=== PATIENT | female | born 1940 | race Caucasian/White ===

== ENCOUNTER 2023-04-24 15:07 | Outpatient (CLI) | payer MEDICARE, BC, SELFPAY ==
--- NOTE | 2023-04-24 15:30 | CRLHL7_ITS ---
For Patients: As a result of the Century Cures Act, medical imaging exams and procedure reports are released immediately into your electronic medical record. You may view this report before your referring provider. If you have questions, please contact your health care provider. Indication: Low back pain. Technique: Multiplanar, multisequence, MRI of the lumbar spine, obtained without contrast. Comparison: MR lumbar spine dated 04/29/2017. Findings: Transitional lumbosacral anatomy. For the purposes of this exam, the last well-formed intervertebral disc is denoted L5-S1. Similar dextroscoliosis centered at L2-L3. Vertebral body heights are maintained and there is no evidence of acute fracture. No suspicious T1 hypointense lesion is identified. The conus medullaris terminates at approximately L1-L2. There is pronounced intervertebral disc height loss on the right at L1-L2, L2-L3 and L4-L5. T12-L1: Similar mild-moderate left neural foraminal narrowing from pronounced facet joint hypertrophy. No significant spinal canal or right neural foraminal stenosis. L1-L2: Similar moderate left neural foraminal narrowing from pronounced facet joint hypertrophy. Abutment of the transiting left L2 nerve root. No significant spinal canal or right neural foraminal stenosis. L2-L3: No significant spinal canal stenosis. Similar mild bilateral neural foraminal narrowing. L3-L4: No significant spinal canal or left neural foraminal stenosis. Similar moderate right neural foraminal narrowing from pronounced facet arthrosis and disc bulge. L4-L5: No significant spinal canal or left neural foraminal stenosis. Similar moderate right neural foraminal narrowing from pronounced facet arthrosis and disc bulge. L5-S1: No significant neural foraminal or spinal canal stenosis. Impression: 1. Transitional lumbosacral anatomy, the last well-formed intervertebral disc denoted L5-S1 for the purposes of this exam. Suggest independent confirmation of vertebral count prior to any planned intervention. 2. Similar dextroscoliosis centered at L2-L3. 3. At L1-L2, L3-L4, and L4-L5, similar moderate right neural foraminal narrowing. No high-grade spinal canal stenosis. 4. Pronounced facet arthrosis at L1-L2 with probable abutment of the transiting left L2 nerve root. Dictated by Eric Calle MD @ 04/25/2023 1:11:59 PM (Electronically Signed)
== END 2023-04-24 15:08 | disposition home or self-care (01) ==
PROVIDERS: PCP Family Medicine; Visit Provider Physical Medicine & Rehabilitation
DX: M54.50 Low back pain, unspecified (principal); M51.26 Other intervertebral disc displacement, lumbar region
CPT/HCPCS: 72148

== ENCOUNTER 2023-09-03 08:56 | Outpatient (CLI) | payer MEDICARE, BC, SELFPAY | END 2023-09-03 08:57 | disposition home or self-care (01) | LOC: INJ CL 08:58 | PROVIDERS: PCP Family Medicine; Visit Provider Family Medicine | DX: M54.16 Radiculopathy, lumbar region (principal); M51.36 Other intervertebral disc degeneration, lumbar region | CPT/HCPCS: 64483; J1100; Q9966 ==

== ENCOUNTER 2024-04-20 14:34 | Emergency (ER) | payer MEDICARE, BC, SELFPAY ==
[2024-04-20 14:38] VITALS: BP 140/79; PULSE 83; RESP 16; TEMP 35.9; O2SAT 100; BMI 24.1
--- NOTE | 2024-04-20 14:45 | CRLHL7_ITS ---
For Patients: As a result of the Century Cures Act, medical imaging exams and procedure reports are released immediately into your electronic medical record. You may view this report before your referring provider. If you have questions, please contact your health care provider. INDICATION: Trauma. TECHNIQUE: Left ankle radiographs, 3 views. COMPARISON: None. FINDINGS: No acute fractures or dislocation. The joint spaces are preserved. Small plantar calcaneal osteophyte. The talar dome remains smooth. The ankle mortise joint space is preserved. No significant soft tissue edema or radiopaque foreign bodies. IMPRESSION: No acute fractures or dislocation. Dictated by Endy Burnette MD @ 04/20/2024 3:09:16 PM (Electronically Signed)
--- NOTE | 2024-04-20 15:13 | ED.GENADULT ---
HPI - General Adult General Date Seen: 04/20/24 Chief complaint: Extremity Pain/Injury, Lower Stated complaint: sprained left ankle Time Seen by Provider: 04/20/24 14:37 Source: patient Mode of arrival: ambulatory Limitations: no limitations History of Present Illness HPI narrative: Patient is an 83-year-old woman who was standing up from a chair last , 5 days ago. She says she did not realize her foot was asleep until she stood up and she kind of rolled her ankle. She says she has been walking on it without difficulty, there has been a little bit of bruising and swelling and if she pushes on the outside of her ankle it is somewhat sore. 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 Related Data Home Medications ?Medication ?Instructions ?Recorded ?Confirmed amlodipine 2.5 mg tablet 2.5 mg PO DAILY 04/20/24 04/20/24 famotidine 40 mg tablet 40 mg PO DAILY 04/20/24 04/20/24 losartan 100 mg tablet 100 mg PO DAILY 04/20/24 04/20/24 pravastatin 20 mg tablet 20 mg PO DAILY 04/20/24 04/20/24 Allergies Allergy/AdvReac Type Severity Reaction Status Date / Time lisinopril Allergy Mild Verified 04/20/24 14:41 PFSH PFS Social History Smoking Status: Never smoker Do you use any of these nicotine containing products: None Second hand tobacco smoke exposure: No How often do you have a drink containing alcohol: never AUDIT-C Alcohol total score: 0 Non-prescribed substance use: denies use Exam Narrative: Exam Narrative: Vital signs reviewed In general, alert, well-appearing elderly woman. Extremities: Examination of the left ankle shows mild swelling around the ankle, no posterior malleolar tenderness, some tenderness noted or over the anterior talofibular ligaments. No 5th metatarsal tenderness. Skin: Warm dry well perfused and intact. There is a little bit of bruising noted on the lateral ankle and lateral foot. Const: Vital Signs, click to edit/add: Vital Signs - 24 hr 04/20/24 14:38 Temperature 96.7 F L Pulse Rate [Pulse Oximeter] 83 Respiratory Rate 16 Blood Pressure [Le ft Upper Arm] 140/79 H Pulse Oximetry 100 Oxygen Delivery Me thod Room Air Documenting provider has reviewed patient's vital signs: yes Course Course ED Course: X-rays of the left ankle by my review are negative, final radiology read as follows:FINDINGS: No acute fractures or dislocation. The joint spaces are preserved. Small plantar calcaneal osteophyte. The talar dome remains smooth. The ankle mortise joint space is preserved. No significant soft tissue edema or radiopaque foreign bodies. IMPRESSION: No acute fractures or dislocation. Reviewed this with her. She declines need for any kind of splint. Expect this will continue to heal over the next week or 2. If for some reason she is having more significant pain she should be re-evaluated the primary care. Vital Signs Vital signs: Initial Vital Signs Temperature 96.7 F L 04/20/24 14:38 Temperature Source Temporal Artery Scan 04/20/24 14:38 Pulse Rate 83 04/20/24 14:38 Respiratory Rate 16 04/20/24 14:38 Blood Pressure 140/79 H 04/20/24 14:38 Blood Pressure Mean 99 04/20/24 14:38 Blood Pressure Position Supine 04/20/24 14:38 Pulse Oximetry 100 04/20/24 14:38 Oxygen Delivery Method Room Air 04/20/24 14:38 Vital Signs Temperature 96.7 F L 04/20/24 14:38 Pulse Rate 83 04/20/24 14:38 Respiratory Rate 16 04/20/24 14:38 Blood Pressure 140/79 H 04/20/24 14:38 Pulse Oximetry 100 04/20/24 14:38 Oxygen Delivery Method Room Air 04/20/24 14:38 Temperature 96.7 F L 04/20/24 14:38 Pulse Rate 83 04/20/24 14:38 Respiratory Rate 16 04/20/24 14:38 Blood Pressure 140/79 H 04/20/24 14:38 Pulse Oximetry 100 04/20/24 14:38 Oxygen Delivery Method Room Air 04/20/24 14:38 Discharge Plan Discharge Clinical Impression: Left ankle sprain Patient Disposition: Home, Self-Care Condition: Stable Instructions: Ankle Sprain (ED) Additional Instructions: Elevate when able, ice if needed. For persistent or worsening pain, recheck with primary care in about a week. Anticipate gradual improvement over the next few weeks. Prescriptions: No Action famotidine 40 mg tablet 40 mg PO DAILY amlodipine 2.5 mg tablet 2.5 mg PO DAILY pravastatin 20 mg tablet 20 mg PO DAILY losartan 100 mg tablet 100 mg PO DAILY Follow Up/Referrals: Africa Love MD [Primary Care Provider] - Stand Alone Forms: [employer] Info Instructions
== END 2024-04-20 15:22 | disposition home or self-care (01) ==
PROVIDERS: Emergency Provider Emergency Medicine; PCP Family Medicine
DX: S93.402A Sprain of unspecified ligament of left ankle, initial encounter (principal); X50.1XXA Overexertion from prolonged static or awkward postures, initial encounter
CPT/HCPCS: 73610; 99283

== ENCOUNTER 2024-11-12 15:36 | Outpatient (CLI) | payer MEDICARE, BC, SELFPAY | END 2024-11-12 15:37 | disposition home or self-care (01) | LOC: AMB 11-13 10:33 | PROVIDERS: PCP Family Medicine; Visit Provider Family Medicine | DX: R55 Syncope and collapse (principal) | CPT/HCPCS: A0998 ==